=== PATIENT | female | born 1995 | race African-American/Black ===

== ENCOUNTER 2017-10-20 04:22 | Emergency (ER) | payer MEDICAID, OTHER ==
[~2017-10-20] VITALS: Ht 167.6 cm; Wt 59.0 kg
[2017-10-20] MEDS ORDERED: KETOROLAC 60MG/2ML VIAL IM ONE (07:15)
[2017-10-20 07:35] LABS: HCG SCREEN NEGATIVE
[2017-10-20 09:13] VITALS: BP 106/67
== END 2017-10-20 10:10 | disposition home or self-care (01) ==
LOC: ER 04:22
DX: S16.1XXA Strain of muscle, fascia and tendon at neck level, initial encounter (principal); F17.210 Nicotine dependence, cigarettes, uncomplicated; F12.10 Cannabis abuse, uncomplicated; V43.52XA Car driver injured in collision with other type car in traffic accident, initial encounter; Y93.89 Activity, other specified; Y92.488 Other paved roadways as the place of occurrence of the external cause
CPT/HCPCS: 70450; 71020; 72125; 84703; 96372; 99284; J1885; Z7610